=== PATIENT | male | born 1985 | race Caucasian/White ===

== ENCOUNTER 2020-05-27 09:12 | Outpatient (REF) | payer OTHER, SELFPAY ==
--- NOTE | 2020-05-27 | US_ITS ---
EXAMINATION: US ABDOMEN COMPLETE CLINICAL INFORMATION: BOB (nonalcoholic steatosis). COMPARISON: Ultrasound abdomen complete dated 02/19/2019. TECHNIQUE: Real-time imaging of the abdominal viscera. FINDINGS: PANCREAS: Normal. ABDOMINAL AORTA: The visualized proximal segment is normal in caliber. INFERIOR VENA CAVA: Visualized portions are normal. LIVER: No focal liver lesions. There is diffuse increased liver parenchymal echogenicity, consistent with hepatic steatosis. The liver is normal in size and contour. No biliary ductal dilatation. GALLBLADDER: Normal. The gallbladder is physiologically distended without evidence of stones, sludge, polyps, wall thickening or pericholecystic fluid. COMMON BILE DUCT: Normal in caliber measuring 0.6 cm in diameter. RIGHT KIDNEY: Normal. No hydronephrosis. No renal calculi or focal parenchymal lesions. The kidney measures 10.6 cm in maximum dimension. LEFT KIDNEY: Normal. No hydronephrosis. No renal calculi or focal parenchymal lesions. The kidney measures 11.4 cm in maximum dimension. SPLEEN: Borderline splenomegaly. The spleen measures 13.2 cm in maximum dimension. FREE FLUID: None. IMPRESSION: Diffusely coarsened echogenicity likely represents fatty infiltration, slightly more conspicuous than the prior study.
== END 2020-05-27 09:13 | disposition home or self-care (01) ==
LOC: HO.US 09:12
PROVIDERS: PCP Internal Medicine; Visit Provider Nurse Practitioner
DX: K75.81 Nonalcoholic steatohepatitis (NASH) (principal)
CPT/HCPCS: 76700

== ENCOUNTER 2020-05-27 10:33 | Outpatient (REF) | payer OTHER, SELFPAY ==
[2020-05-27 14:38] LABS: Alanine Aminotransferase 31 U/L (0-40); Albumin Level 4.7 g/dL (3.5-5.0); Alkaline Phosphatase 53 U/L (39-117); Aspartate Amino Transferase 22 U/L (5-37); Bilirubin Direct 0.4 mg/dL (0.0-0.5); Bilirubin Total 1.4 mg/dL (0.0-1.0); Cholesterol 265 mg/dL; Estimated Glomerular Filt Rate > 60; HDL Cholesterol 48 mg/dL; LDL Cholesterol Calculated 200 mg/dl; Total Protein 6.9 g/dL (6.5-8.0); Triglycerides 87 mg/dL
[2020-05-28 13:02] LABS: Alpha Fetoprotein 2.2 ng/mL (<6.1)
== END 2020-05-27 10:34 | disposition home or self-care (01) ==
LOC: HO.10HDL 10:33
PROVIDERS: Visit Provider Internal Medicine
DX: E78.5 Hyperlipidemia, unspecified (principal); K75.81 Nonalcoholic steatohepatitis (NASH); M10.9 Gout, unspecified
CPT/HCPCS: 80061; 80076; 82105; 82565; 84550

== ENCOUNTER → 2020-09-29 13:22 | Outpatient (BNVA) | payer OTHER, SELFPAY | PROVIDERS: PCP Internal Medicine; Visit Provider Internal Medicine Gastroenterology ==

== ENCOUNTER → 2020-12-03 10:49 | Outpatient (BNVA) | payer OTHER, SELFPAY | PROVIDERS: PCP Internal Medicine; Visit Provider Nurse Practitioner ==

== ENCOUNTER 2021-05-19 09:30 | Outpatient (REF) | payer OTHER, SELFPAY ==
--- NOTE | ~2021-05-19 | US_ITS ---
EXAMINATION: US COMPLETE ABDOMEN WITH LIVER ELASTOGRAPHY CLINICAL INFORMATION: Nonalcoholic steatohepatitis COMPARISON: Ultrasound abdomen 05/27/2020 TECHNIQUE: Real-time imaging of the abdominal viscera. Noninvasive ultrasound liver fibrosis assessment is performed using [employer]va ElastPQ point quantification shear wave elastography (pSWE) with a C5-2 MHz transducer. Multiple elastography samples are obtained. FINDINGS: PANCREAS: Normal. The visualized pancreatic head and body are normal in appearance. The remainder of the pancreas is obscured from visualization by the overlying bowel gas. ABDOMINAL AORTA: The proximal, middle, and distal aortic segments are normal in caliber. INFERIOR VENA CAVA: Visualized portions are normal. LIVER: Normal. The liver demonstrates normal size, contour and echogenicity. No focal lesion or intrahepatic biliary duct dilatation. The right lobe measures 13.0 cm in length. The left lobe measures 9.1 cm in length. Portal flow is mildly pulsatile and hepatopedal flow. Shear wave liver elastography median stiffness is 1.77 m/s (reference: normal median stiffness is 1.3 m/s or less). IQR/median stiffness to assess sampling precision is 0.25 (reference: good quality data set is IQR/median stiffness of 0.15 or less). GALLBLADDER: Normal. The gallbladder is physiologically distended without evidence of stones, sludge, polyps, wall thickening or pericholecystic fluid. COMMON BILE DUCT: Normal in caliber measuring 0.32 cm in diameter. RIGHT KIDNEY: Normal. No hydronephrosis. No renal calculi or focal parenchymal lesions. The kidney measures 10.7 cm in maximum dimension. LEFT KIDNEY: Normal. No hydronephrosis. No renal calculi or focal parenchymal lesions. The kidney measures 11.3 cm in maximum dimension. SPLEEN: Normal. The spleen measures 12.9 cm in maximum dimension. FREE FLUID: None. US/US abdomen comp w elastography IMPRESSION: 1. Unremarkable complete abdomen ultrasound. 2. Liver elastography: Median liver stiffness measures 1.77 this corresponds to cACLD suggestive REFERENCE: Society of Radiologists in Ultrasound Liver Stiffness Thresholds (2019): LIVER STIFFNESS THRESHOLDS: *Liver Stiffness equal or less than 1.3 m/s: High probability of being normal. *Liver Stiffness less than 1.7 m/s: In the absence of other known clinical signs, rules out compensated advanced chronic liver disease. *Liver Stiffness 1.7-2.1 m/s: Suggestive of compensated advanced chronic liver disease but need further test for confirmation. *Liver Stiffness over 2.1 m/s: Rules in compensated advanced chronic liver disease. *Liver Stiffness over 2.4 m/s: Suggestive of clinically significant portal hypertension. QUALITY OF DATA SET: *IQR/Median value equal or less than 0.15 implies a quality data set. *IQR/Median value over 0.15 implies a poor quality data set. SIGNIFICANT CHANGE FROM PRIOR EXAM: Significant change if liver stiffness measurement is 10% or greater from prior exam. OTHER CONSIDERATIONS: The stage of liver fibrosis may be overestimated in the setting of acute hepatitis, liver inflammation, elevated liver function tests, hepatic vascular congestion, obstructive cholestasis, non-fasting state, and infiltrative diseases such as amyloidosis and lymphoma. In some patients with NAFLD, the liver stiffness thresholds for compensated advanced chronic liver disease may be lower. In causes other than viral hepatitis and NAFLD, liver stiffness thresholds are not well established.
== END 2021-05-19 09:31 | disposition home or self-care (01) ==
LOC: HO.US 09:30
PROVIDERS: PCP Internal Medicine; Visit Provider Nurse Practitioner
DX: K75.81 Nonalcoholic steatohepatitis (NASH) (principal)
CPT/HCPCS: 76705; 76981

== ENCOUNTER → 2021-06-17 09:25 | Outpatient (BNVA) | payer OTHER, SELFPAY | PROVIDERS: PCP Internal Medicine; Referring Provider Internal Medicine; Visit Provider Nurse Practitioner ==

== ENCOUNTER 2021-08-05 10:44 | Outpatient (REF) | payer OTHER, SELFPAY ==
[2021-08-05 13:51] LABS: MANUAL DIFF FLAG NO
[2021-08-05 13:58] LABS: Basophils Percent Auto 0.9 % (0-2); Eosinophils Absolute Auto 0.1 X10*3/uL (0.0-0.4); Eosinophils Percent Auto 2.4 % (0-4); Hematocrit 41.8 % (42.0-52.0); Hemoglobin 14.4 g/dl (14.0-18.0); Imm Gran Abs Auto 0.01 X10*3/uL (0.00-0.03); Imm Gran Pct Auto 0.2 % (0.0-0.4); Lymphocytes Absolute Auto 1.5 X10*3/uL (1.2-4.9); Lymphocytes Percent Auto 34.1 % (20-40); Mean Corpuscular HGB Conc 34.4 g/dl (31.0-36.0); Mean Corpuscular Hemoglobin 31.2 pg (27.0-33.0); Mean Corpuscular Volume 90.7 fL (80.0-98.0); Monocytes Absolute Auto 0.5 X10*3/uL (0.1-1.2); Neutrophils Absolute Auto 2.4 x10*3/uL (2.0-8.3); Neutrophils Percent Auto 52.4 % (45-73); Platelet Count 147 X10*3/uL (160-400); Red Blood Count 4.61 X10*6/uL (4.60-5.80); Red Cell Distribution Width 11.8 % (11.0-16.0); White Blood Count 4.5 X10*3/uL (4.8-10.8)
[2021-08-05 14:14] LABS: Cholesterol 290 mg/dL; HDL Cholesterol 42 mg/dL; LDL Cholesterol Calculated 220 mg/dl; Triglycerides 141 mg/dL
[2021-08-05 14:20] LABS: Alanine Aminotransferase 25 U/L (0-40); Aspartate Amino Transferase 19 U/L (5-37); Estimated Glomerular Filt Rate > 60; Uric Acid 3.6 mg/dL (3.4-7.0)
== END 2021-08-05 10:45 | disposition home or self-care (01) ==
LOC: HO.10HDL 10:44
PROVIDERS: Internal Medicine; Internal Medicine Rheumatology; Visit Provider Nurse Practitioner
DX: E11.9 Type 2 diabetes mellitus without complications (principal); K75.81 Nonalcoholic steatohepatitis (NASH); M10.9 Gout, unspecified
CPT/HCPCS: 36415; 80061; 82105; 82565; 84450; 84460; 84550; 85025

== ENCOUNTER → 2022-01-04 10:05 | Outpatient (BNVA) | payer OTHER, SELFPAY | PROVIDERS: PCP Internal Medicine; Referring Provider Internal Medicine; Visit Provider Nurse Practitioner | DX: Z13.89 Encounter for screening for other disorder (principal) ==

== ENCOUNTER 2022-01-31 08:42 | Outpatient (REF) | payer OTHER, SELFPAY ==
[2022-01-31 11:48] LABS: Alanine Aminotransferase 75 U/L (0-40); Albumin Level 4.6 g/dL (3.5-5.0); Alkaline Phosphatase 51 U/L (39-117); Anion Gap 11 (12-20); Aspartate Amino Transferase 41 U/L (5-37); Bilirubin Total 1.2 mg/dL (0.0-1.0); Blood Urea Nitrogen 18 mg/dL (9-16); Calcium 9.7 mg/dL (8.4-10.2); Carbon Dioxide 27 mmol/L (22-29); Chloride 105 mmol/L (96-108); Cholesterol 244 mg/dL; Estimated Glomerular Filt Rate > 60; Glucose Random 93 mg/dL (60-115); HDL Cholesterol 44 mg/dL; LDL Cholesterol Calculated 181 mg/dl; Potassium 4.4 mmol/L (3.3-5.1); Sodium 139 mmol/L (135-145); Total Protein 6.9 g/dL (6.5-8.0); Triglycerides 95 mg/dL
[2022-02-01 12:51] LABS: Alpha Fetoprotein 2.1 ng/mL (<6.1)
== END 2022-01-31 08:43 | disposition home or self-care (01) ==
LOC: HO.10HDL 08:42
PROVIDERS: Absent Provider Nurse Practitioner; Visit Provider Internal Medicine
DX: Z00.00 Encounter for general adult medical examination without abnormal findings (principal); K75.81 Nonalcoholic steatohepatitis (NASH)
CPT/HCPCS: 36415; 80053; 80061; 82105